=== PATIENT | female | born 2000 ===

== ENCOUNTER 2021-09-09 07:47 | Emergency (ER) | payer MEDICAID, OTHER ==
[~2021-09-09] VITALS: Ht 154.9 cm; Wt 88.5 kg
[2021-09-09 08:44] VITALS: BP 143/86
[2021-09-09] MEDS ORDERED: IBU600T PO (09:47)
== END 2021-09-09 10:04 | disposition home or self-care (01) ==
LOC: ER 07:47
DX: S63.91XA Sprain of unspecified part of right wrist and hand, initial encounter (principal); S93.601A Unspecified sprain of right foot, initial encounter; V49.9XXA Car occupant (driver) (passenger) injured in unspecified traffic accident, initial encounter; Y93.89 Activity, other specified; Y92.89 Other specified places as the place of occurrence of the external cause; Y99.8 Other external cause status
CPT/HCPCS: 73130; 73630

== ENCOUNTER 2021-12-26 05:33 | Emergency (ER) | payer MEDICAID ==
[~2021-12-26] VITALS: Ht 154.9 cm; Wt 95.3 kg
[~2021-12-26 05:33] MED LIST: IBU600T PO
[2021-12-26 06:35] LABS: Basophils # (auto) 0.1 10 ^3/uL (0-0.2); Eosinophils # (auto) 0.1 10 ^3/uL (0-0.8); Hematocrit 33.3 % (36.0-46.0); Hemoglobin 11.2 g/dL (12.2-16.2); Lymphocytes # (auto) 1.9 10 ^3/uL (0.4-5.4); Mean Corpuscular Hemoglobin 25.1 pg (28.0-32.0); Monocytes # (auto) 0.6 10 ^3/uL (0-1.3); Monocytes % (auto) 6.3 % (0.0-12.0); Nucleated Red Blood Cells % 0.1 %; Red Blood Cells 4.46 10^6/uL (4.0-5.20); Red Cell Distribution Width 18.3 % (11.8-14.3)
[2021-12-26 06:37] LABS: Eosinophils % (auto) 1.2 % (0.0-7.0); Lymphocytes % (auto) 20.9 % (10.0-50.0); Mean Corpuscular Hgb Conc. 33.6 g/dL (32.0-36.0); Mean Corpuscular Volume 74.7 fL (80.0-100.0); Neutrophils # (auto) 6.5 10 ^3/uL (1.6-8.6); Neutrophils % (auto) 70.6 % (37.0-80.0); White Blood Cell 9.2 10^3/uL (4.4-10.8)
[2021-12-26 07:07] LABS: Beta HCG, Quantitative < 1 mlU/mL (1-3)
[2021-12-26 07:43] LABS: Albumin 3.6 g/dL (3.4-5.0); Calcium 9.1 mg/dL (8.5-10.1); Potassium 3.9 mmol/L (3.5-5.1)
[2021-12-26 07:48] LABS: Bilirubin, Total 0.4 mg/dL (0.2-1.0); Total Protein 7.7 g/dL (6.4-8.2)
[2021-12-26 08:07] VITALS: BP 112/59
[2021-12-26 08:20] LABS: Urine Bacteria FEW /hpf (None Seen); Urine Blood Negative /uL (Negative); Urine Specific Gravity 1.011 (1.001-1.035); Urine WBC 1 /hpf (0 - 5)
== END 2021-12-26 09:04 | disposition home or self-care (01) ==
LOC: ER 05:33
DX: E03.9 Hypothyroidism, unspecified (principal); Z79.1 Long term (current) use of non-steroidal anti-inflammatories (NSAID)
CPT/HCPCS: 36415; 70450; 72125; 80053; 81001; 84443; 84702; 85025